=== PATIENT | male | born 1955 ===

== ENCOUNTER 2018-01-10 07:20 | Emergency (ER) | payer OTHER ==
[2018-01-10 07:25] VITALS: PULSE 75; O2SAT 99
--- NOTE | 2018-01-10 08:26 | ED PDOC ---
HPI: Back Time Seen by Provider: 01/10/18 07:35 Chief Complaint (Nursing): Back Pain Chief Complaint (Provider): Back Pain History Per: Patient History/Exam Limitations: no limitations Onset/Duration Of Symptoms: Days (x1) Associated Symptoms: Other (Chronic right shoulder pain) Additional Complaint(s): 62 years old male with history of hypertension and high cholesterol presents to ER for evaluation of constant lower back pain since last night. Patient reports worsening of pain with movement and walking. He states he has right shoulder pain for the last month and reports lifting different things at work. Patient denies any weakness or numbness of legs, chest pain, fever, nausea or taking any medications for pain. PMD: non provided Past Medical History Reviewed: Historical Data, Nursing Documentation, Vital Signs Vital Signs: Last Vital Signs Temp 97.8 F 01/10/18 07:24 Pulse 75 01/10/18 07:24 Resp 18 01/10/18 07:24 BP 137/69 01/10/18 07:24 Pulse Ox 99 01/10/18 07:24 - Medical History PMH: HTN, Hypercholesterolemia - Surgical History Surgical History: No Surg Hx - Family History Family History: States: Unknown Family Hx - Social History Current smoker - smoking cessation education provided: No Alcohol: None Drugs: Denies - Home Medications Home Medications: Ambulatory Orders Medication Instructions Recorded Methylprednisolone [Medrol Dose 4 mg PO ASDIR #21 mg 01/10/18 Pack (21 tabs)] RX: traMADol [Ultram] 50 mg PO TID PRN #15 tab 01/10/18 - Allergies Allergies/Adverse Reactions: Allergies Allergy/AdvReac Type Severity Reaction Status Date / Time No Known Allergies Allergy Verified 01/10/18 07:36 Review of Systems ROS Statement: Except As Marked, All Systems Reviewed And Found Negative Constitutional: Negative for: Fever Cardiovascular: Negative for: Chest Pain Gastrointestinal: Negative for: Nausea Musculoskeletal: Positive for: Shoulder Pain (Right), Back Pain (Lower). Negative for: Leg Pain (weakness or numbness) Physical Exam - Reviewed Nursing Documentation Reviewed: Yes Vital Signs Reviewed: Yes - Physical Exam Appears: Positive for: Non-toxic, No Acute Distress Head Exam: Positive for: ATRAUMATIC, NORMOCEPHALIC Skin: Positive for: Normal Color, Warm, Dry Eye Exam: Positive for: Normal appearance, EOMI, PERRL Cardiovascular/Chest: Positive for: Regular Rate, Rhythm. Negative for: Murmur Respiratory: Positive for: Normal Breath Sounds. Negative for: Wheezing Gastrointestinal/Abdominal: Positive for: Normal Exam, Soft. Negative for: Tenderness Back: Positive for: Muscle Spasm, Other (Right lower back tenderness) Extremity: Positive for: Normal ROM, Other (+ straight leg raise to the right side) Neurologic/Psych: Positive for: Alert, Oriented (x3) - Laboratory Results Result Diagrams: 01/10/18 12:15 01/10/18 12:15 - ECG O2 Sat by Pulse Oximetry: 99 (RA) Pulse Ox Interpretation: Normal - Progress Re-evaluation Time: 15:40 Condition: Re-examined, Improved Medical Decision Making Medical Decision Making: Time: 0755 Initial Impression: Acute lower back pain and chronic right shoulder pain. Differential includes but not limited to musculoskeletal pain, lumbar radical radiculopathy, disc desiccation and shoulder arthritis. Initial Plan: --CT Lumbar Spine --Dipstick --Flexirl 20 mg PO --Toradol [address] Lumbar Spine FINDINGS: VERTEBRAE: There is no acute fracture, spondylolysis or spondylolisthesis. Bone alignment and mineralization are normal. There is normal lumbar lordosis. There is endplate irregularity, sclerosis and subarticular endplate cystic changes at L3-4. There is also reduced disc height at L3-4 with mild desiccation of the disc. DISCS/SPINAL CANAL/NEURAL FORAMINA: L1-2: Mild posterior disc bulge and mild neural foraminal narrowing. No central spinal canal stenosis. L2-3: Diffuse posterior disc bulge without central spinal canal stenosis. Mild bilateral facet arthropathy contribute to moderate neural foraminal narrowing. L3-4: Diffuse posterior disc bulge without central spinal canal stenosis. Mild neural foraminal narrowing. L4-5: Diffuse posterior disc bulge and superimposed left far lateral protrusion likely impinges the exiting left L4 nerve root. Mild bilateral facet arthropathy contribute to severe bilateral neural foraminal narrowing. No central spinal canal stenosis. L5-S1: Diffuse posterior disc bulge without central spinal canal stenosis. Moderate bilateral facet arthropathy contribute to severe neural foraminal narrowing. PARASPINAL SOFT TISSUES: Unremarkable. OTHER FINDINGS: None. IMPRESSION: 1. No acute fracture, spondylolysis or spondylolisthesis. 2. Endplate irregularity, sclerosis and subarticular endplate cystic changes at L3-4 with reduced disc height and mild disc desiccation, diffuse posterior disc bulge and mild neural foraminal narrowing. No central spinal canal stenosis. Although these findings could be related to advanced degenerative disc disease, given single level involvement osteomyelitis discitis cannot be entirely excluded. If there is a clinical concern, MRI of the lumbar spine without and with intravenous contrast may be performed for definitive evaluation. 1154 Ordered MRI Lumbar Spine. 1525 Lumbar Spine MRI FINDINGS: There is normal alignment of the lumbar vertebral bodies. There is normal lumbar lordosis. There is no acute fracture or spondylolysis. There are T1 and T2 hyperintense endplate marrow changes with Schmorl's nodes at L3-4 without corresponding abnormal signal on STIR images and without significant endplate enhancement on post-contrast images. There is mild focal enhancement in the posterior Carmen node at the inferior endplate of L3 vertebral body consistent with acute process. There are mild degenerative endplate marrow changes at L4-5, a Schmorl's node in the anterior inferior L5 vertebral body and endplate marrow changes at T12 anterosuperiorly. The conus medullaris terminates at a normal level and the nerve roots of cauda equina are normal. T12-L1: No disc herniation, neural foraminal narrowing or spinal canal stenosis. L1-2: Posterior disc bulge without central spinal canal stenosis. Mild bilateral facet arthropathy contribute to mild neural foraminal narrowing. L2-3: Diffuse posterior disc bulge without central spinal canal stenosis. Also noted is superimposed left foraminal disc protrusion. Mild bilateral facet arthropathy contribute to mild right and moderate left neural foraminal narrowing. L3-4: Diffuse posterior disc bulge indents the ventral thecal sac without central spinal canal stenosis. Mild bilateral facet arthropathy contribute to mild neural foraminal narrowing. L4-5: Diffuse posterior disc bulge with superimposed left foraminal disc protrusion without central canal stenosis. Mild right and moderate left facet arthropathy contribute to moderate right and moderate to severe left neural foraminal narr owing with probable impingement on the exiting left L4 nerve root. L5-S1: Diffuse posterior disc bulge indents the ventral thecal sac without central spinal canal stenosis. Also noted is a superimposed right posterolateral disc protrusion without neural compromise. Mild right and moderate left facet arthropathy contribute to severe neural foraminal narrowing, worse on the right. OTHER FINDINGS: The paraspinous soft tissues are normal. Imaged portion of the retroperitoneum is within normal limits. Incompletely imaged is an over distended urinary bladder. IMPRESSION: 1. Advanced multilevel degenerative disc disease, worse at L3-4 with a diffuse posterior disc bulge, mild neural foraminal narrowing, advanced degenerative endplate marrow changes with Schmorl's nodes without spinal canal stenosis. No evidence for discitis/osteomyelitis. 2. At L4-5 disc use posterior disc bulge with superimposed left foraminal disc protrusion in conjunction with moderate left facet arthropathy likely result in impingement of the exiting left L4 nerve root. 3. Additional comments as described above. Scribe Attestation: Documented by Stephanie Winn, acting as a scribe for Apollo Castillo MD. Provider Scribe Attestation: All medical record entries made by the Scribe were at my direction and personally dictated by me. I have reviewed the chart and agree that the record accurately reflects my personal performance of the history, physical exam, medical decision making, and the department course for this patient. I have also personally directed, reviewed, and agree with the discharge instructions and disposition. Disposition - Clinical Impression Clinical Impression: Back pain, DJD (degenerative joint disease), Disc herniation - Patient ED Disposition Is Patient to be Admitted: No Doctor Will See Patient In The: Office Counseled Patient/Family Regarding: Studies Performed, Diagnosis, Need For Followup - Disposition Referrals: [facility] [Outside] Jose Cruz Law MD [Staff Provider] - Disposition: Routine/Home Disposition Time: 15:42 Condition: GOOD Additional Instructions: KEYANA AGUIRRE, thank you for letting us take care of you today. Your provider was Apollo Castillo MD and you were treated for BACK PAIN. The emergency medical care you received today was directed at your acute symptoms. If you were prescribed any medication, please fill it and take as directed. It may take several days for your symptoms to resolve. Return to the Emergency Department if your symptoms worsen, do not improve, or if you have any other problems. Please contact your doctor or call one of the physicians/clinics you have been referred to that are listed on the Patient Visit Information form that is included in your discharge packet. Bring any paperwork you were given at discharge with you along with any medications you are taking to your follow up visit. Our treatment cannot replace ongoing medical care by a primary care provider outside of the emergency department. Thank you for allowing the [facility] team to be part of your care today. If you had an X-Ray or CT scan: A Radiologist will review the ED reading if any change in treatment is needed we will contact you. If you had a blood, urine, or wound culture: It will take several days for the results, if any change in treatment is needed we will contact you. If you had an STI test: It will take 48 hours for the results. Please call after 1 week if you have not heard back. Prescriptions: Methylprednisolone [Medrol Dose Pack (21 tabs)] 4 mg PO ASDIR #21 mg RX: traMADol [Ultram] 50 mg PO TID PRN #15 tab PRN Reason: Pain, Severe (8-10) Instructions: Herniated Disc, Low Back Pain (DC), Radiculopathy (DC) Forms: [facility] ED School/Work Excuse Print Language: DIVEHI
--- NOTE | 2018-01-10 10:54 | CT ---
Date of service: 01/10/2018 PROCEDURE: CT Lumbar Spine without contrast HISTORY: lower back pain COMPARISON: None available. TECHNIQUE: Axial computed tomography images were obtained of the lumbar spine without the use of intravenous contrast. Coronal and sagittal reformatted images were created and reviewed. Radiation dose: Total exam DLP = 1136.69 mGy-cm. This CT exam was performed using one or more of the following dose reduction techniques: Automated exposure control, adjustment of the mA and/or kV according to patient size, and/or use of iterative reconstruction technique. FINDINGS: VERTEBRAE: There is no acute fracture, spondylolysis or spondylolisthesis. Bone alignment and mineralization are normal. There is normal lumbar lordosis. There is endplate irregularity, sclerosis and subarticular endplate cystic changes at L3-4. There is also reduced disc height at L3-4 with mild desiccation of the disc. DISCS/SPINAL CANAL/NEURAL FORAMINA: L1-2: Mild posterior disc bulge and mild neural foraminal narrowing. No central spinal canal stenosis. L2-3: Diffuse posterior disc bulge without central spinal canal stenosis. Mild bilateral facet arthropathy contribute to moderate neural foraminal narrowing. L3-4: Diffuse posterior disc bulge without central spinal canal stenosis. Mild neural foraminal narrowing. L4-5: Diffuse posterior disc bulge and superimposed left far lateral protrusion likely impinges the exiting left L4 nerve root. Mild bilateral facet arthropathy contribute to severe bilateral neural foraminal narrowing. No central spinal canal stenosis. L5-S1: Diffuse posterior disc bulge without central spinal canal stenosis. Moderate bilateral facet arthropathy contribute to severe neural foraminal narrowing. PARASPINAL SOFT TISSUES: Unremarkable. OTHER FINDINGS: None. IMPRESSION: 1. No acute fracture, spondylolysis or spondylolisthesis. 2. Endplate irregularity, sclerosis and subarticular endplate cystic changes at L3-4 with reduced disc height and mild disc desiccation, diffuse posterior disc bulge and mild neural foraminal narrowing. No central spinal canal stenosis. Although these findings could be related to advanced degenerative disc disease, given single level involvement osteomyelitis discitis cannot be entirely excluded. If there is a clinical concern, MRI of the lumbar spine without and with intravenous contrast may be performed for definitive evaluation.
[2018-01-10 12:27] LABS: BASO # 0.1 K/uL (0.0-0.2); BASO % 0.8 % (0.0-2.0); EOS # 0.7 K/uL (0.0-0.7); EOS % 8.5 % (0.0-4.0); HEMOGLOBIN 15.5 g/dL (12.0-18.0); LYMPH # 1.9 K/uL (1.0-4.3); LYMPH % 23.1 % (20.0-40.0); MEAN CELL VOLUME 91.6 fl (80.0-94.0); MEAN CORPUSCULAR HEMOGLOBIN 31.3 pg (27.0-31.0); MEAN CORPUSCULAR HGB CONC 34.1 g/dL (33.0-37.0); MEAN PLATELET VOLUME 7.6 fl (7.2-11.7); MONO # 0.8 K/uL (0.0-0.8); MONO % 9.6 % (0.0-10.0); NEUT # 4.8 K/uL (1.8-7.0); NRBC % 0.1 % (0.0-0.0); RBC 4.97 Mil/uL (4.40-5.90); RED CELL DISTRIBUTION WIDTH 13.8 % (11.5-14.5); WHITE BLOOD COUNT 8.3 K/uL (4.8-10.8)
[2018-01-10 12:39] LABS: BLOOD UREA NITROGEN 10 mg/dl (9-20); CALCIUM 9.8 mg/dL (8.4-10.2); GFR NON-AFRICAN AMERICAN > 60
[2018-01-10] MEDS ORDERED: Gadodiamide 287 MG/ML VIAL (15ML) IV ONE (13:50)
--- NOTE | 2018-01-10 15:29 | MRI ---
Date of service: 01/10/2018 PROCEDURE: MR LUMBAR SPINE WITH AND WITHOUT CONTRAST HISTORY: lower back pain abnormal CT COMPARISON: CT lumbar spine without contrast performed earlier the same day. TECHNIQUE: Multiecho multiplanar sequences were performed through the lumbar spine with and without the use of intravenous contrast. 18 cc Omniscan was injected intravenously. FINDINGS: There is normal alignment of the lumbar vertebral bodies. There is normal lumbar lordosis. There is no acute fracture or spondylolysis. There are T1 and T2 hyperintense endplate marrow changes with Schmorl's nodes at L3-4 without corresponding abnormal signal on STIR images and without significant endplate enhancement on post-contrast images. There is mild focal enhancement in the posterior Carmen node at the inferior endplate of L3 vertebral body consistent with acute process. There are mild degenerative endplate marrow changes at L4-5, a Schmorl's node in the anterior inferior L5 vertebral body and endplate marrow changes at T12 anterosuperiorly. The conus medullaris terminates at a normal level and the nerve roots of cauda equina are normal. T12-L1: No disc herniation, neural foraminal narrowing or spinal canal stenosis. L1-2: Posterior disc bulge without central spinal canal stenosis. Mild bilateral facet arthropathy contribute to mild neural foraminal narrowing. L2-3: Diffuse posterior disc bulge without central spinal canal stenosis. Also noted is superimposed left foraminal disc protrusion. Mild bilateral facet arthropathy contribute to mild right and moderate left neural foraminal narrowing. L3-4: Diffuse posterior disc bulge indents the ventral thecal sac without central spinal canal stenosis. Mild bilateral facet arthropathy contribute to mild neural foraminal narrowing. L4-5: Diffuse posterior disc bulge with superimposed left foraminal disc protrusion without central canal stenosis. Mild right and moderate left facet arthropathy contribute to moderate right and moderate to severe left neural foraminal narrowing with probable impingement on the exiting left L4 nerve root. L5-S1: Diffuse posterior disc bulge indents the ventral thecal sac without central spinal canal stenosis. Also noted is a superimposed right posterolateral disc protrusion without neural compromise. Mild right and moderate left facet arthropathy contribute to severe neural foraminal narrowing, worse on the right. OTHER FINDINGS: The paraspinous soft tissues are normal. Imaged portion of the retroperitoneum is within normal limits. Incompletely imaged is an over distended urinary bladder. IMPRESSION: 1. Advanced multilevel degenerative disc disease, worse at L3-4 with a diffuse posterior disc bulge, mild neural foraminal narrowing, advanced degenerative endplate marrow changes with Schmorl's nodes without spinal canal stenosis. No evidence for discitis/osteomyelitis. 2. At L4-5 disc use posterior disc bulge with superimposed left foraminal disc protrusion in conjunction with moderate left facet arthropathy likely result in impingement of the exiting left L4 nerve root. 3. Additional comments as described above.
[2018-01-10 16:01] VITALS: BP 133/70; RESP 16; TEMP 97.6
== END 2018-01-10 15:59 | disposition home or self-care (01) ==
LOC: H.ER 07:20
DX: M54.9 Dorsalgia, unspecified (principal); M51.36 Other intervertebral disc degeneration, lumbar region; M51.16 Intervertebral disc disorders with radiculopathy, lumbar region; E78.00 Pure hypercholesterolemia, unspecified; I10 Essential (primary) hypertension
CPT/HCPCS: 72131; 72158; 80048; 85025; 85651; 96372; 99285; A9579; J1885

== ENCOUNTER 2018-06-27 08:10 | Emergency (ER) | payer SELFPAY ==
[2018-06-27 08:13] VITALS: BMI 29.0
[2018-06-27] MEDS ORDERED: Lidocaine 5% Patch TD STA (09:13)
--- NOTE | 2018-06-27 09:19 | ED PDOC ---
HPI: Back Time Seen by Provider: 06/27/18 08:54 Chief Complaint (Nursing): Back Pain Chief Complaint (Provider): Back Pain History Per: Patient History/Exam Limitations: no limitations Onset/Duration Of Symptoms: Days (06/23/18) Current Symptoms Are (Timing): Still Present Quality Of Discomfort: "Pain" Previous Symptoms: Chronic Pain Additional Complaint(s): 62 year old male with HTN and high cholesterol presents to the ED for an evaluation of right lower back pain that radiates down to his right leg onset 06/23/18. He states he has chronic back pain and this pain is not new due to heavy lifting. Otherwise, patient denies fever, chest pain, weakness, numbness, tingling, incontinence, frequency, dysuria or abdominal pain. PMD: Clinic Past Medical History Reviewed: Historical Data, Nursing Documentation, Vital Signs Vital Signs: Last Vital Signs Temp 99.2 F 06/27/18 08:13 Pulse 80 06/27/18 08:13 Resp 17 06/27/18 08:13 BP 157/81 H 06/27/18 08:13 Pulse Ox 98 06/27/18 08:13 - Medical History PMH: Back Problems, HTN, Hypercholesterolemia - Family History Family History: States: Unknown Family Hx - Social History Current smoker - smoking cessation education provided: No Alcohol: Social Drugs: Denies - Home Medications Home Medications: Ambulatory Orders Medication Instructions Recorded Methylprednisolone [Medrol Dose 4 mg PO ASDIR #21 mg 01/10/18 Pack (21 tabs)] traMADol [Ultram] 50 mg PO TID PRN #15 tab 01/10/18 Ibuprofen [Motrin] 600 mg PO TID 7 Days tab 06/27/18 Lidocaine 5% [Lidoderm] 1 ea TD DAILY PRN #5 patch 06/27/18 - Allergies Allergies/Adverse Reactions: Allergies Allergy/AdvReac Type Severity Reaction Status Date / Time No Known Allergies Allergy Verified 01/10/18 07:36 Review of Systems ROS Statement: Except As Marked, All Systems Reviewed And Found Negative Constitutional: Negative for: Fever Cardiovascular: Negative for: Chest Pain Gastrointestinal: Negative for: Nausea, Vomiting, Abdominal Pain, Diarrhea Genitourinary Male: Negative for: Dysuria, Frequency, Incontinence Musculoskeletal: Positive for: Back Pain Neurological: Negative for: Weakness, Numbness, Other (tingling ) Physical Exam - Reviewed Nursing Documentation Reviewed: Yes Vital Signs Reviewed: Yes - Physical Exam Neck: Positive for: Normal, Supple Cardiovascular/Chest: Positive for: Regular Rate, Rhythm. Negative for: Murmur Respiratory: Positive for: Normal Breath Sounds. Negative for: Wheezing, Respiratory Distress Gastrointestinal/Abdominal: Positive for: Normal Exam, Soft. Negative for: Tenderness Back: Positive for: Other (tenderness on right lower back ) Extremity: Positive for: Normal ROM, Other (straight leg neg b/l). Negative for: Tenderness Neurological/Psych: Positive for: Awake, Alert, Normal Tone, Oriented (x3) - ECG O2 Sat by Pulse Oximetry: 98 (RA) Pulse Ox Interpretation: Normal - Progress ED Course And Treament: 939: Stable. AAOx3. Pain free. Tolerated po. FU with pcp. Chronic back pain. Ambulated with no issues. Medical Decision Making Medical Decision Making: Time: 912 Plan: Lidocaine 5% Ibuprofen 600mg Reevaluation Patient refused to obtain a x-ray and requested for medications. Scribe Attestation: Documented by Cristi Rogers, acting as a scribe for Vahid Lambert MD Provider Scribe Attestation: All medical record entries made by the Scribe were at my direction and personally dictated by me. I have reviewed the chart and agree that the record accurately reflects my personal performance of the history, physical exam, medical decision making, and the department course for this patient. I have also personally directed, reviewed, and agree with the discharge instructions and disposition. Disposition - Clinical Impression Clinical Impression: Low back pain - Patient ED Disposition Is Patient to be Admitted: No Counseled Patient/Family Regarding: Diagnosis, Need For Followup, Rx Given - Disposition Referrals: [facility] [Outside] - 06/28/18 Disposition: Routine/Home Disposition Time: 09:30 Condition: STABLE Additional Instructions: Return if not better in 3 days. Prescriptions: Ibuprofen [Motrin] 600 mg PO TID 7 Days tab Lidocaine 5% [Lidoderm] 1 ea TD DAILY PRN #5 patch PRN Reason: Pain, Moderate (4-7) Instructions: Low Back Pain in Adults Forms: [facility] ED School/Work Excuse
[2018-06-27] MEDS ORDERED: Lidocaine 5% Patch TD ONE (09:26)
[2018-06-27 09:56] VITALS: BP 141/78; PULSE 70; RESP 18; TEMP 98.4; O2SAT 99
== END 2018-06-27 09:55 | disposition home or self-care (01) ==
LOC: H.ER 08:10
DX: G89.29 Other chronic pain (principal); M54.5 Low back pain; I10 Essential (primary) hypertension